=== PATIENT | male | born 1995 | race Caucasian/White ===

== ENCOUNTER 2018-09-09 06:01 | Emergency (ER) | payer OTHER, SELFPAY ==
[2018-09-09 06:03] VITALS: BP 158/76; PULSE 121; RESP 16; TEMP 36.5; O2SAT 99; BMI 21.9
--- NOTE | 2018-09-09 06:18 | ED.DCSUM_ITS ---
- ER Visit Summary Date of Service: 09/09/18 Chief Complaint: [Tick bite] History of Present Illness: The patient is a 23 M [presents to the emergency department with concern about a tick bite. Patient states that he was getting ready for work around 3 PM yesterday when he noticed a tick on his left lateral calf. Patient states that he panicked and immediately ripped it off and cannot tell me if he got the entire tick out including the head. Patient states that he is been concerned about it and wanted to come and get checked out. Patient denies any fevers or any symptoms. Patient has no medical history. Physical Examination: [HEENT-PERRLA, EOMI. Cranial nerves II through XII grossly intact. TMs clear. Mucous membranes moist. No adenopathy. Cardiovascular-regular rate and rhythm without murmur or ectopy Lungs-clear to auscultation, chest wall stable without crepitus or subcu emphysema Abdomen-normoactive bowel sounds, soft, nontender, no rebound or rigidity, no peritoneal signs. Extremities-intact ?4, normal range of motion, normal pulses, atraumatic. Left calf-on the lateral aspect of the calf there is a small excoriation measuring about 2 mm in diameter. No erythema or cellulitis noted.] Test Results: [None indicated] Emergency Department Course and Treatment: [Using splinter forceps I removed a small superficial scab of skin and there was no evidence of foreign body or remnant of tick.] Treatment Plan: [I discussed treatment options with patient including prophylactic antibiotics with doxycycline for 20 days or 200 mg one-time dose versus expected observation for signs of infection. At this point patient would prefer not to have any antibiotics and would prefer to return if any signs of fever or bull's-eye-like rash/lesion.] Disposition: [Discharged home in stable condition. Patient advised to return if fever, rash, chills, sweats, or conditions worsen anyway.] Impression: [Take bite-no signs of infection] This note was generated with [employer] dictation software. It may contain incorrect words, spelling, and punctuation that were not noted in review of the chart prior to signing ED Disposition - Plan for ED Patient: Referrals: Care Physician,No Primary [Primary Care Provider] -
--- NOTE | 2018-09-09 06:18 | ED.DEP ---
ED Disposition - Plan for ED Patient: Instructions: ED Bite Tick No Abx Tx Referrals: Care Physician,No Primary [Primary Care Provider] - Jesus Brown MD [STAFF PHYSICIAN] - 5-7 Days
== END 2018-09-09 06:24 | disposition home or self-care (01) ==
LOC: ED 06:22
PROVIDERS: Emergency Provider Emergency Medicine
DX: S80.862A Insect bite (nonvenomous), left lower leg, initial encounter (principal); W57.XXXA Bitten or stung by nonvenomous insect and other nonvenomous arthropods, initial encounter; Y93.9 Activity, unspecified; Y92.9 Unspecified place or not applicable; Y99.9 Unspecified external cause status
CPT/HCPCS: 99281; 99282